=== PATIENT | female | born 1985 | race Caucasian/White ===

== ENCOUNTER 2016-10-24 17:13 | Outpatient (CLI) | payer BC ==
[~2016-10-24 17:13] MED LIST: LOVA10TA45; NORG7TAB
[2016-10-24] MEDS ORDERED: LR 1,000 ML IV SCH ×2 (17:45→18:00)
[2016-10-24] MEDS ORDERED: ONDANSETRON 4mg/2ml INJECTION IV PRN (17:45)
[2016-10-24 18:41] LABS: BASOPHILS % (AUTO) 0.1 % (0-2); EOSINOPHILS # (AUTO) 0.1 T/MM3 (0-0.5); EOSINOPHILS % (AUTO) 0.3 % (0-4); HCT - HEMATOCRIT 38.4 % (36-46); HGB - HEMOGLOBIN 13.3 GM/DL (12-16); IMMATURE GRANULOCYTE % (AUTO) 0.7 % (0.0-0.5); LYMPHOCYTES # (AUTO) 1.4 T/MM3 (1-4.8); LYMPHOCYTES % (AUTO) 9.7 % (23-45); MEAN CORPUSCULAR HGB 30.3 UUG (26-34); MEAN CORPUSCULAR HGB CONC(MCHC 34.6 GM/DL (31-37); MEAN CORPUSCULAR VOLUME 87.5 UM3 (80-100); MEAN PLATELET VOLUME 11.8 UM3 (9.4-12.4); MONOCYTES # (AUTO) 0.7 T/MM3 (0-0.8); NEUTROPHILS #(AUTO)-ABSOLUTE 12.2 T/MM3 (1.8-7.7); NEUTROPHILS % (AUTO) 84.2 % (33-66); RED BLOOD COUNT 4.39 M/MM3 (4.00-5.20); WBC - WHITE BLOOD COUNT 14.5 T/MM3 (4.5-11.0)
--- NOTE | 2016-10-25 10:59 | PNF ---
OUTPATIENT NOTE DATE: 10/24/2016 Ms. Marquez is a 31-year-old at 36 weeks estimated gestational age, well known to me from her care. She called today to report that she has not felt well all day and has had nausea and vomiting to the point where she is unable to keep anything down. She was also feeling some contractions. We recommended that she report to [facility]. Here on Maternal Child Unit indeed she is having some irregular contractions. heart tones are category 1. Her cervix is closed, thick and high. However, she does have quite a lot of nausea and vomiting. We are awaiting a CBC. She is afebrile at this time. At this moment she is receiving an IV fluid bolus and Zofran to help. We will then see if that helps enough for her to be able to go home. If not, we will admit her to [facility] for overnight symptom control. She voices understanding of this plan. LIYAH
[2016-11-01] MEDS ORDERED: PREN1TAB73 PO (16:17)
== END 2016-10-24 19:50 | disposition home or self-care (01) ==
LOC: MC 17:13 → OBOBS 17:13
PROVIDERS: ATTEND Obstetrics & Gynecology
DX: O21.2 Late vomiting of pregnancy (principal); Z3A.36 36 weeks gestation of pregnancy
CPT/HCPCS: 36415; 59025; 85025; 96361; 96374; J2405; J7120

== ENCOUNTER 2016-11-14 07:36 | Inpatient (IN) | payer BC ==
[~2016-11-14] VITALS: Ht 152.4 cm; Wt 80.2 kg
[~2016-11-14 07:36] MED LIST changes: -LOVA10TA45; -NORG7TAB; +PREN1TAB73 PO
[2016-11-14] MEDS ORDERED: CALCIUM CARBONATE 500mg Chewable TAB PO PRN ×2 (07:45→19:30)
[2016-11-14] MEDS ORDERED: LIDOCAINE 1% (10mg/ml) 2ml SDV ID PRN (07:45)
[2016-11-14] MEDS ORDERED: ACETAMINOPHEN 500 MG TABLET PO PRN ×2 (07:45→19:30)
[2016-11-14] MEDS ORDERED: OXYTOCIN 30 UNIT in D5LR 500 ML SCH (07:45)
[2016-11-14] MEDS ORDERED: MAG-AL + SIM LIQUID 30 ML UDC PO PRN ×2 (07:45→19:30)
[2016-11-14] MEDS ORDERED: D5LR 1,000 ML IV PRN (08:00)
[2016-11-14 08:26] LABS: HCT - HEMATOCRIT 39.2 % (36-46); HGB - HEMOGLOBIN 13.2 GM/DL (12-16); MEAN CORPUSCULAR HGB 29.5 UUG (26-34); MEAN CORPUSCULAR HGB CONC(MCHC 33.7 GM/DL (31-37); MEAN CORPUSCULAR VOLUME 87.7 UM3 (80-100); RED BLOOD COUNT 4.47 M/MM3 (4.00-5.20); WBC - WHITE BLOOD COUNT 9.8 T/MM3 (4.5-11.0)
[2016-11-14 08:31] VITALS: BP 116/76; PULSE 85; RESP 16; TEMP 98.2; O2SAT 99
--- NOTE | 2016-11-14 08:41 | ANESOB ---
Epidural/ Date/Time DATE: 11/14/16 TIME: 08:40 Preop Diagnosis Procedure: Labor Epidural Plan: Epidural Height: 5 ' 0.00 " Weight: 80.200 kg BMI: kg/m2 P:1 Medications & Allergies Inpatient Medications Current Medications Medications (Trade) Dose Ordered Sig/Kyle Start Time Stop Time Status Last Admin Dose Admin Lidocaine HCl 0.2 mg 0.2 mg PRN PRN 11/14/16 07:45 Lactated Ringer's (Lactated Ringers) 1,000 ml @ 0 mls/hr Q0M PRN 11/14/16 07:44 Acetaminophen (Tylenol Extra Strength) 1-2 TABS = 500-1,000 MG Q4H PRN 11/14/16 07:45 Al Hydroxide/Mg Hydroxide (Maalox) 30 ml Q4H PRN 11/14/16 07:45 Calcium Carbonate 1-2 TABS Q2H PRN 11/14/16 07:45 Dextrose/Lactated Ringer's 1,000 ml @ 0 mls/hr Q0M PRN 11/14/16 08:00 Oxytocin/Dextrose/ Lactated Ringer's (Pitocin/D5lr) 503 ml @ 0 mls/hr Q0M 11/14/16 07:45 Pnv95/Ferrous Fumarate/FA ( Tablet) 1 Each Tablet, 1 TAB PO DAILY, ( Reported) Last Taken: on 11/13/16 2100 Coded Allergies: No Known Drug Allergies (Unverified Allergy, Unknown, 02/20/12) Medical/Surgical History Anesthesia PMH: Reports: Anesthesia Reactions (nausea), Denies: *Angina, * Diabetes, *Hypertension, *IA, Asthma, CHF, COPD, CVA/Stroke/TIA, Hiatal Hernia, Malignant Hyperthermia, Pneumonia, Reflux, Seizures, Tuberculosis Smoking Status: Never smoker Does patient use chewing tobac: No Second Hand Exposure: No Substance Use Type: does not use Anesthesia Adverse Reactions: FOUND nausea and vomiting Family Hx of Anesthesia Advers: none Hx of Motion Sickness: No Complications During : No Pertinent Findings Laboratory Tests 11/14/16 08:04 EKG Rhythm: Sinus Rhythm Physical Exam Respiratory: Bilat breath sounds equal, Lungs clear Cardiovascular: No murmur, Regular rate, rhythm Airway Assessment Mallampati Score: II TMD: 3 Fingerbreadths Neck Extension: Good Overall Assessment: May Be Diff Intubation ASA: 2 Discussion Discussed risks/options/alternatives of anesthesia. Patient consents. Nursing pain assessment noted. Present for Discussion: Present: Spouse Attestation Statement Prior to the delivery of any anesthetic medication, I examined the patient, developed the plan, obtained the patient's consent and discussed the risk and benefits of the procedure with the patient/guardian. If the note happens to be signed after anesthesia start time, it is only due to providing efficient care of the patient and documenting at a time when the computer is available. DICK PIKE [employer] MA[employer]GER Nov 14, 2016 08:41
[2016-11-14] MEDS ORDERED: LIDOCAINE 1% (10mg/ml) 2ml SDV ID ONE (08:57)
[2016-11-14] MEDS: LR 1,000 ML IV PRN ×2 (09:08→17:13)
[2016-11-14] MEDS ORDERED: DiphenhydrAMINE 50 MG/ML INJECTION IV PRN (15:45)
[2016-11-14] MEDS ORDERED: ONDANSETRON 4mg/2ml INJECTION IV PRN (15:45)
[2016-11-14] MEDS ORDERED: ROPIVACAINE 1% 200 MG, SUFENTANIL 50 MCG in NORMAL SALINE 80 ML EPI PRN (15:45)
[2016-11-14] MEDS ORDERED: NALOXONE 0.4mg/ml INJECTION IV PRN (15:45)
[2016-11-14] MEDS ORDERED: OXYTOCIN 30 UNIT in D5W 500 ML IV ONE ×4 (19:22)
[2016-11-14] MEDS ORDERED: DiphenhydrAMINE 25 MG CAPSULE PO PRN (19:30)
[2016-11-14] MEDS ORDERED: PHENYLEPHRINE RECTAL SUPPOSITORY RECTALLY PRN (19:30)
[2016-11-14] MEDS ORDERED: MILK OF MAGNESIA 30 ML SUSP PO PRN (19:30)
[2016-11-14] MEDS ORDERED: HYDROCODONE/APAP 5 mg/325 mg TABLET PO PRN (19:30)
[2016-11-14] MEDS ORDERED: HYDROCORTISONE 2.5% CREAM 30 GM RECTALLY PRN (19:30)
[2016-11-14] MEDS: IBUPROFEN 800 MG TABLET PO SCH (21:21)
--- NOTE | 2016-11-14 23:04 | LDNF ---
DATE OF DELIVERY 11/14/2016 NARRATIVE Ms. Sutton progressed very well in first stage of labor. She began to push with excellent effort at the complete and +2 presentation. She pushed for a short while and delivered the head in the OA position. Baby was bulb suctioned on the perineum. There was no evidence of nuchal cord. With about two further pushes she delivered the baby in total. Baby was then further bulb suctioned and placed on mother's abdomen. After about two and half minutes the cord was doubly clamped and cut. This is a liveborn female with Apgars of 7/9/9, weighing 8 pounds, 1.4 ounces. After about 14 minutes the placenta delivered spontaneously intact. It had a normal configuration and normal-appearing three-vessel cord. There was a second-degree irregular midline laceration of the perineum. This was repaired in the usual fashion with 2-0 Vicryl. Total blood loss was approximately 400 mL. At the time of this dictation mother and baby are doing well. LIYAH
[2016-11-14 23:53] VITALS: BP 106/58; PULSE 72; RESP 18; TEMP 98.2; O2SAT 97
--- NOTE | 2016-11-15 00:10 | NUR ---
Epidural Epidural catheter removed without complications, tip intact, no S/S of infection noted. Area cleansed with alcohol, betadine and covered with a bandaid. Pt. educated about S/S of infection and to call doctor with concerns.
--- NOTE | 2016-11-15 00:15 | NUR ---
Progress Note Pt dangled, stood at bedside, and ambulated to bathroom with RN supervision and denied dizziness. Pt unable to void at this time. RN educated pt about pericare and skin care. Pt verbalized understanding. RN assisted with pericare and skin care. Pad and ice pack changed with tucks pads and benzo spray. Linens changed. Will continue to monitor per plan of care.
--- NOTE | 2016-11-15 02:30 | NUR ---
Chart Check 24 hour chart check completed
--- NOTE | 2016-11-15 02:30 | NUR ---
Shift Summary Pt's VS stable. Fundus firm and minimal lochia. IVSL. Pt tolerating po fluids and regular diet. Drew GILL @ 0002 and has not voided yet. Pt attentive to needs and bonding appropriately. Pt infant well in cradle hold ad lamont. Call morelos in reach and side rails up X2. Will continue to monitor per plan of care.
[2016-11-15 04:04] VITALS: BP 117/74; PULSE 75; RESP 16; TEMP 98.6; O2SAT 99
[2016-11-15] MEDS: DOCUSATE CALCIUM 240 MG CAPSULE PO SCH (09:33)
[2016-11-15] MEDS: IBUPROFEN 800 MG TABLET PO SCH ×2 (09:34→20:28)
--- NOTE | 2016-11-15 09:39 | PNPDOC ---
Progress Note PPD1 Rubella: Immune GBS: Negative Blood Type:AB pos Subjective 11/15/16 Lochia: Minimal tailbone pain Nausea and Vomiting: No Nausea/Vomiting Objective Vital Signs Date Time Temp Pulse Resp B/P Pulse Ox O2 Delivery O2 Flow Rate FiO2 11/15/16 04:04 98.6 75 16 117/74 99 11/14/16 23:53 Room Air Urine Output: Good General: Alert and Oriented Abdomen: Fundus Firm, Non-tender +1 bilateral pretibial edema Assessment SP, Plan Routine Care Expected date of discharge: Nov 16, 2016 MAURA SHEARER MD Nov 15, 2016 09:39
--- NOTE | 2016-11-15 09:39 | ANESPO ---
Post-Op Note Date 11/15/16 Time: 09:35 Status Pt Participated in Evaluation: Pt participated in person Vital Signs Date Time Temp Pulse Resp B/P Pulse Ox O2 Delivery O2 Flow Rate FiO2 11/15/16 04:04 98.6 75 16 117/74 99 11/14/16 23:53 Room Air Respiratory Function: Airway patent Cardiovascular Function: Regular pulse Mental Status: Alert/oriented Pain Level Intensity: 0 Hydration: Taking po fluids Complications during Recovery None apparent Follow-Up Instructions Instructions Per Surgeon Additional Information Pt has residual motor block in Right foot. Dorsal flexion is noted to be weaker in Right. Plantar extension normal. Normal motor BL legs on resistance to Superior and Posterior pressure. Describes some "tingling" in right foot. Just instructed patient that this should resolve with time. If it does not, to contact Dr Garrett for further evaluation. DICK PIKE CRNA Nov 15, 2016 09:38
[2016-11-15] MEDS ORDERED: DOCU240C40 PO ×2 (09:40→09:46)
[2016-11-15] MEDS ORDERED: IBUP-1547 PO ×2 (09:40→09:46)
[2016-11-15] MEDS ORDERED: HYDR-4246 PO ×2 (09:40→09:46)
[2016-11-15 11:15] VITALS: BP 102/61; PULSE 86; RESP 18; TEMP 97.9; O2SAT 97
--- NOTE | 2016-11-15 15:27 | NUR ---
Shift Summary: VS stable, mother has been up ad lamont, voiding, performing own cares and has showered. is going well. Pain controlled with oral pain meds. Pt is resting well at this time.
[2016-11-15 16:15] VITALS: BP 95/62; PULSE 84; RESP 16; TEMP 98.1; O2SAT 99
[2016-11-15 23:30] VITALS: BP 110/71; PULSE 76; RESP 16; TEMP 98.2; O2SAT 97
--- NOTE | 2016-11-16 01:45 | NUR ---
Shift summary: VSS. Pt is up ad lamont and performing self cares. Reports small bleeding. Ibuprofen 800 mg given for pain management. supportive and at bedside. Attentive to needs.
[2016-11-16] MEDS: IBUPROFEN 800 MG TABLET PO SCH (06:43)
[2016-11-16] MEDS: DOCUSATE CALCIUM 240 MG CAPSULE PO SCH (06:43)
[2016-11-16 06:59] VITALS: BP 116/74; PULSE 77; RESP 16; TEMP 98; O2SAT 99
--- NOTE | 2016-11-16 10:28 | PNPDOC ---
MC Prog Note 11/16/16 vss af no c/o dc instructions reviewed q&a-krb ENEIDA HART MD Nov 16, 2016 10:28
--- NOTE | 2016-11-16 11:56 | NUR ---
Dismissal Dismissal instructions reviewed. Verbalized understanding. Waiting for dismissal of baby.
--- NOTE | 2016-11-16 13:59 | NUR ---
Dismissal Dismissed ambulatory with baby in car seat carried by FOB and accompanied by older daughter. Dismissed in good condition.
== END 2016-11-16 13:55 | disposition home or self-care (01) | DRG 775 ==
LOC: MC 07:36
PROVIDERS: ADMIT Obstetrics & Gynecology; ATTEND Obstetrics & Gynecology
PROC: 10E0XZZ Delivery of Products of Conception, External Approach (ICD-10-PCS; principal; 2016-11-14)
PROC: 0KQM0ZZ Repair Perineum Muscle, Open Approach (ICD-10-PCS; 2016-11-14)
PROC: 3E033VJ Introduction of Other Hormone into Peripheral Vein, Percutaneous Approach (ICD-10-PCS; 2016-11-14)
PROC: 10907ZC Drainage of Amniotic Fluid, Therapeutic from Products of Conception, Via Natural or Artificial Opening (ICD-10-PCS; 2016-11-14)
DX: O26.893 Other specified pregnancy related conditions, third trimester (principal); O70.1 Second degree perineal laceration during delivery; O99.284 Endocrine, nutritional and metabolic diseases complicating childbirth; E78.5 Hyperlipidemia, unspecified; Z3A.39 39 weeks gestation of pregnancy; Z37.0 Single live birth
CPT/HCPCS: 36415; 85027